=== PATIENT | female | born 1940 | race Two or more races ===

== ENCOUNTER 2017-05-26 19:08 | Emergency (ER) | payer OTHER ==
[~2017-05-26] VITALS: Ht 170.2 cm; Wt 79.4 kg
[2017-05-26] MEDS ORDERED: DEXTROSE 50%-WATER 50 ML DISP.SYRIN ONE (19:29)
[2017-05-26] MEDS ORDERED: DEXTROSE 50%-WATER 50 ML DISP.SYRIN IVP ONE (19:30)
[2017-05-26 19:50] LABS: BASOPHILS # (AUTO) 0.1 /CMM (0.0-0.2); EOSINOPHILS # (AUTO) 0.1 /CMM (0.0-0.7); EOSINOPHILS % (AUTO) 0.6 % (0.0-6.0); HEMATOCRIT 41 % (33-45); HEMOGLOBIN 13.5 g/dL (11.5-14.8); LYMPHOCYTES # (AUTO) 1.1 /CMM (0.8-4.8); LYMPHOCYTES % (AUTO) 9.9 % (20.0-44.0); MEAN CORPUSCULAR HEMOGLOBIN 28 PG (26.0-33.0); MEAN CORPUSCULAR HGB CONC 33 g/dl (31.0-36.0); MEAN CORPUSCULAR VOLUME 84 fL (82-100); MONOCYTES # (AUTO) 0.3 /CMM (0.1-1.30); MONOCYTES % (AUTO) 3.1 % (2.0-12.0); NEUTROPHILS # (AUTO) 9.1 /CMM (1.8-8.9); NEUTROPHILS % (AUTO) 85.4 % (43.0-81.0); PLATELET COUNT (AUTO) 364 /CMM (150-450); RDW COEFFICIENT OF VARIATION 17.8 (11.5-15.0); RED BLOOD CELL COUNT(AUTO) 4.87 MIL/uL (4.0-5.2); WHITE BLOOD COUNT (AUTO) 10.7 K/uL (4.3-11.0)
[2017-05-26 20:17] LABS: TROPONIN I < 0.017 ng/mL (0.00-0.056)
[2017-05-26 20:18] LABS: ALANINE AMINOTRANSFERASE 29 U/L (12-78); ALBUMIN 3.7 g/dL (3.4-5.0); ALKALINE PHOSPHATASE 123 U/L (46-116); ASPARTATE AMINOTRANSFERASE 38 U/L (15-37); BILIRUBIN,DIRECT 0.1 mg/dL (0.0-0.2); BILIRUBIN,TOTAL 0.4 mg/dL (0.2-1.0); CALCIUM, SERUM 9.7 mg/dL (8.5-10.1); CARBON DIOXIDE 29 mmol/L (21-32); CHLORIDE 96 mmol/L (98-107); CREATININE 2.3 mg/dL (0.6-1.3); GLUCOSE 62 mg/dL (74-106); SODIUM SERUM 132 mmol/L (136-145); UREA NITROGEN, BLOOD 56 mg/dL (7-18)
[2017-05-26 20:46] LABS: INR 0.88 (0.87-1.13); PROTHROMBIN TIME 9.2 SECS (9.5-12.7)
--- NOTE | 2017-05-26 20:59 | NUR ---
CALLED [facility], SPOKE WITH NOEL. EXPECTING A CALL BACK FROM [facility]
--- NOTE | 2017-05-26 21:03 | NUR ---
DR ROMAN FROM [facility] CALLED , ON THE PHONE WITH DR TAYLOR.
--- NOTE | 2017-05-26 21:45 | NUR ---
[facility] WOULD LIKE TO BE NOTIFIED WITH ANY CHANGES IN PT CONDITION AND/OR TRANSFER, PT IS SALAS
--- NOTE | 2017-05-26 21:46 | NUR ---
CARMINA PHELPS [place] [phone]
--- NOTE | 2017-05-26 21:55 | NUR ---
PATIENT WILL BE TRASNFERED TO [facility] [place]. ACCEPTED BY NUMBER TO GIVE REPORT ALS ETA [id number]
[2017-05-26 22:05] LABS: APPEARANCE,URINE CLEAR (CLEAR); BILIRUBIN,URINE NEGATIVE (NEGATIVE); BLOOD, URINE TRACE Ery/uL (NEGATIVE); COLOR,URINE OTHER (YELLOW); KETONES,URINE NEGATIVE (NEGATIVE); LEUKOCYTE ESTERASE ,URINE NEGATIVE (NEGATIVE); NITRITE, URINE NEGATIVE (NEGATIVE); PH,URINE 6.5 (5.0-8.0); PROTEIN,URINE 1+ mg/dl (NEGATIVE); UGLUCOSE NEGATIVE (NEGATIVE); UROBILINOGEN,URINE 0.2 EU/dL (0.2)
[2017-05-26 22:10] LABS: BACTERIA,URINE Rare /HPF (None Seen); SQUAMOUS EPITHELIAL CELL,UR None Seen /HPF (None Seen); WBC,URINE NONE SEEN /HPF (0-3)
--- NOTE | 2017-05-26 22:59 | NUR ---
PT TRANSFER TO [facility]IA [facility], REPORT GIVEN TO CHARGE NURSE MARYCARMEN. PT STABLE AT THIS TIME, ALERT AND ORIENTED, COPY OF CHART GIVEN TO [facility]
[2017-05-26 23:09] VITALS: BP 128/72
== END 2017-05-26 23:07 | disposition short-term general hospital (02) ==
LOC: ER 19:09
DX: E11.649 Type 2 diabetes mellitus with hypoglycemia without coma (principal); E11.22 Type 2 diabetes mellitus with diabetic chronic kidney disease; N17.9 Acute kidney failure, unspecified; I13.0 Hypertensive heart and chronic kidney disease with heart failure and stage 1 through stage 4 chronic kidney disease, or unspecified chronic kidney disease; I50.9 Heart failure, unspecified; N18.9 Chronic kidney disease, unspecified; G93.40 Encephalopathy, unspecified; R82.99 Other abnormal findings in urine; R79.89 Other specified abnormal findings of blood chemistry; R79.1 Abnormal coagulation profile; H40.9 Unspecified glaucoma; J32.0 Chronic maxillary sinusitis; M48.00 Spinal stenosis, site unspecified; Z95.0 Presence of cardiac pacemaker; Z95.1 Presence of aortocoronary bypass graft; Z98.890 Other specified postprocedural states
CPT/HCPCS: 36415; 70450-TC; 71010-TC; 80048-TC; 80076-TC; 81000-TC; 82962-TC; 83605-TC; 84484-TC; 85025-TC; 85730-TC; 87040-TC; 87081-TC; 87086-TC; A4606; Z7610